=== PATIENT | male | born 1950 | race Caucasian/White ===

== ENCOUNTER → 2019-01-13 | Outpatient (CLI) | payer MEDICARE ==
--- NOTE | 2019-01-13 12:30 | PFTRPT ---
Height: 73.00 Inches Weight: 283.00 Lbs BSA: 2.49 Diagnosis: R06.02 DATE OF PROCEDURE: 01/13/2019 ORDERED BY: Dr. Emeterio Ventura Spirometry: Pre and post bronchodilator study of excellent technical quality. Forced vital capacity reduced. FEV1 in proportion. Obstructive index is, therefore, normal. Flow Volume Loop: Expiratory limb of the flow volume loop does suggest some nonspecific flow rate limitation. Favorable bronchodilator response is identified. Lung Volumes: Total lung capacity normal. Residual volume raises a question of air trapping. Diffusing Capacity: Diffusing capacity is normal. Hemoglobin: Hemoglobin acceptable at 14.6. Airway Mechanics: Airway resistance and conductance are normal. IMPRESSION: Nonspecific flow rate limitation. Cannot rule out suboptimal effort, but favorable bronchodilator response is identified. Please correlate clinically. MTDD
== END ==
LOC: M CARPUL 11:43
PROVIDERS: ATTEND Internal Medicine
DX: R06.02 Shortness of breath (principal)